=== PATIENT | male | born 1950 | race Two or more races ===

== ENCOUNTER 2021-01-29 20:00 | Emergency (ER) | payer OTHER ==
[~2021-01-29] VITALS: Ht 180.3 cm; Wt 77.1 kg
[2021-01-29] MEDS ORDERED: ONDANSETRON ODT 4 MG TAB PO ONE (23:15)
[2021-01-29] MEDS ORDERED: HYDROcodone-ACET 10/325MG TAB PO ONE (23:15)
[2021-01-29 23:48] VITALS: BP 159/95
== END 2021-01-29 23:55 | disposition home or self-care (01) ==
LOC: ER 20:01
DX: S52.592A Other fractures of lower end of left radius, initial encounter for closed fracture (principal); W18.39XA Other fall on same level, initial encounter; Y93.89 Activity, other specified; Y92.89 Other specified places as the place of occurrence of the external cause; Y99.8 Other external cause status
CPT/HCPCS: 29125; 73110; 99283; Q0162